=== PATIENT | female | born 1995 | race Caucasian/White ===

== ENCOUNTER 2016-03-11 21:41 | Emergency (ER) | payer MEDICAID, OTHER ==
[~2016-03-11] VITALS: Ht 157.5 cm; Wt 78.9 kg
[~2016-03-11 21:41] MED LIST: AMOX250S5 PO; HYDR118S PO
[2016-03-11 22:55] LABS: BILIRUBIN,URINE NEGATIVE (NEGATIVE); KETONES,URINE NEGATIVE (NEGATIVE); LEUKOCYTE ESTERASE ,URINE 2+ (NEGATIVE); NITRITE,URINE NEGATIVE (NEGATIVE); PH,URINE 6 (5-9); PROTEIN,URINE 1+ (NEGATIVE); UROBILINOGEN,URINE NORMAL (NORMAL)
[2016-03-12 01:23] LABS: BASOPHILS % (AUTO) 0 % (0-10); EOSINOPHILS % (AUTO) 1 % (0-10); LYMPHOCYTES # (AUTO) 2.3 X 10^3 (1.0-4.0); LYMPHOCYTES % (AUTO) 27 % (12-44); MEAN CORPUSCULAR HEMOGLOBIN 29 PG (25-34); MEAN CORPUSCULAR HGB CONC 36 G/DL (32-36); MEAN CORPUSCULAR VOLUME 81 FL (80-99); MONOCYTES # (AUTO) 0.8 X 10^3 (0.0-1.0); MONOCYTES % (AUTO) 9 % (0-12); NEUTROPHILS # (AUTO) 5.3 X 10^3 (1.8-7.8); NEUTROPHILS % (AUTO) 63 % (42-75); PLATELET COUNT 246 10^3/uL (130-400); RED BLOOD COUNT 5.24 10^6/uL (4.35-5.85); RED CELL DISTRIBUTION WIDTH 13.4 % (10.0-14.5); WHITE BLOOD COUNT 8.3 10^3/uL (4.3-11.0)
[2016-03-12 01:43] LABS: ALANINE AMINOTRANSFERASE 17 U/L (0-55); ALBUMIN 4.1 G/DL (3.2-4.5); ANION GAP 12 MMOL/L (5-14); ASPARTATE AMINO TRANSFERASE 15 U/L (5-34); BILIRUBIN,TOTAL 0.7 MG/DL (0.1-1.0); BLOOD UREA NITROGEN 7 MG/DL (7-18); BUN/CREATININE RATIO 9; CARBON DIOXIDE 19 MMOL/L (21-32); CHLORIDE 107 MMOL/L (98-107); CREATININE SERUM 0.77 MG/DL (0.60-1.30); GFR ESTIMATED > 60; GLUCOSE 84 MG/DL (70-105); LIPASE 14 U/L (8-78); POTASSIUM 3.1 MMOL/L (3.6-5.0); SODIUM 138 MMOL/L (135-145); TOTAL PROTEIN 7.2 G/DL (6.4-8.2)
[2016-03-12] MEDS ORDERED: CEPHALEXIN 250 MG (KEFLEX) CAP PO ONE (02:00)
[2016-03-12] MEDS ORDERED: KCL 10 MEQ TAB (MICRO K) PO ONE (02:00)
[2016-03-12] MEDS ORDERED: CEPH-507 PO (02:10)
--- NOTE | 2016-03-12 02:10 | ED Abdominal Pain ---
General Chief Complaint: Abdominal/GI Problems Stated Complaint: STOMACH PAIN Nursing Triage Note: abdominal pain Sepsis Screen: No Definite Risk Source of Information: Patient Exam Limitations: No Limitations History of Present Illness Time Seen By Provider: 22:37 Initial Comments This 20-year-old woman presents to the emergency room with complaints of abdominal pain from the upper abdomen extending to the lower abdomen. Pain started within the past 24 hours after eating pizza last night. She has nausea without vomiting. She has chronic diarrhea since cholecystectomy. She denies any vaginal or urinary symptoms. LMP was February 04 and her urine test is positive. Her. She was unaware of the . She reports history of hiatal hernia. Allergies and Home Medications Allergies Coded Allergies: No Known Drug Allergies (Unverified , 12/29/11) Home Medications Cephalexin 500 Mg Capsule 7Days 500 MG PO QID Prescribed by: FAISAL YING on 03/12/16 0210 Review of Systems Constitutional: no symptoms reported EENTM: No Symptoms Reported Respiratory: No Symptoms Reported Cardiovascular: No Symptoms Reported Gastrointestinal: See HPI Genitourinary: See HPI Musculoskeletal: no symptoms reported Skin: no symptoms reported Psychiatric/Neurological: No Symptoms Reported Past Ilzhvwp-Tcbove-Uvvkif Hx Patient Social History Alcohol Use: Denies Use Recreational Drug Use: No Smoking Status: Never a Smoker Recent Foreign Travel: No Contact w/Someone Who Travel: No Recent Infectious Disease Expo: No Recent Hopitalizations: No Physical Abuse Screen: No Sexual Abuse: No Immunizations Up To Date Tetanus Booster (TDap): Less than 5yrs Seasonal Allergies Seasonal Allergies: No Surgeries HX Surgeries: Yes (vaginal hernia; wisdom teeth) Surgeries: Gallbladder, Tonsillectomy Respiratory Hx Respiratory Disorders: No Cardiovascular Hx Cardiac Disorders: No Neurological Hx Neurological Disorders: Yes Neurological Disorders: Headaches /Migraines Reproductive System : Yes Hx Reproductive Disorders: No Genitourinary Hx Genitourinary Disorders: No Gastrointestinal Hx Gastrointestinal Disorders: Yes (chronic diarrhea) Gastrointestinal Disorders: Hiatal Hernia Musculoskeletal Hx Musculoskeletal Disorders: No Endocrine Hx Endocrine Disorders: No HEENT HX ENT Disorders: No Cancer Hx Cancer: No Psychosocial Hx Psychiatric Problems: No Blood Transfusions Hx Blood Disorders: No Physical Exam Vital Signs VS - Last 72 Hours, by Label 03/11/16 03/12/16 22:19 02:16 Temp 98.2 98.2 Pulse 100 112 Resp 20 20 B/P 111/75 Pulse Ox 97 98 O2 Delivery Room Air Capillary Refill : Less Than 3 Seconds General Appearance: WD/WN HEENT: PERRL/EOMI normal ENT inspection pharynx normal Neck: normal inspection Respiratory: lungs clear normal breath sounds no respiratory distress no accessory muscle use Cardiovascular: regular rate, rhythm no edema no murmur Gastrointestinal: normal bowel sounds soft tenderness (epigastric and suprapubic) Extremities: normal range of motion non-tender normal inspection Neurologic/Psychiatric: pc maintenance technician II-XII nml as tested no motor/sensory deficits alert normal mood/affect oriented x 3 Skin: normal color warm/dry Progress/Results/Core Measures Results/Orders Lab Results Laboratory Tests Test 03/11/16 22:45 03/12/16 01:12 Range/Units Urine Bacteria FEW H /HPF Urine Bilirubin NEGATIVE NEGATIVE Urine Casts NONE /LPF Urine Clarity CLEAR Urine Color YELLOW Urine Crystals NONE /LPF Urine Culture Indicated YES Urine Glucose (UA) NEGATIVE NEGATIVE Urine Ketones NEGATIVE NEGATIVE Urine Leukocyte Esterase 2+ H NEGATIVE Urine Mucus LARGE H /LPF Urine Nitrite NEGATIVE NEGATIVE Urine Protein 1+ H NEGATIVE Urine RBC NONE /HPF Urine RBC (Auto) NEGATIVE NEGATIVE Urine Specific [place] 1.020 1.016-1.022 Urine Squamous Epithelial Cells 10-25 H /HPF Urine Urobilinogen NORMAL NORMAL MG/DL Urine WBC 10-25 H /HPF Urine pH 6 5-9 Alanine Aminotransferase (ALT/SGPT) 17 0-55 U/L Albumin 4.1 3.2-4.5 G/DL Alkaline Phosphatase 98 40-136 U/L Anion Gap 12 5-14 MMOL/L Aspartate Amino Transf (AST/SGOT) 15 5-34 U/L BUN/Creatinine Ratio 9 Basophils # (Auto) 0.0 0.0-0.1 10^3/uL Basophils (%) (Auto) 0 0-10 % Blood Urea Nitrogen 7 7-18 MG/DL Calcium Level 9.0 8.5-10.1 MG/DL Carbon Dioxide Level 19 L 21-32 MMOL/L Chloride Level 107 98-107 MMOL/L Creatinine 0.77 0.60-1.30 MG/DL Eosinophils # (Auto) 0.0 0.0-0.3 10^3/uL Eosinophils (%) (Auto) 1 0-10 % Estimat Glomerular Filtration Rate > 60 Glucose Level 84 70-105 MG/DL Hematocrit 42 35-52 % Hemoglobin 15.1 11.5-16.0 G/DL Human Chorionic Gonadotropin, Quant 284 H <5 MIU/ML Lipase 14 8-78 U/L Lymphocytes # (Auto) 2.3 1.0-4.0 X 10^3 Lymphocytes (%) (Auto) 27 12-44 % Mean Corpuscular Hemoglobin 29 25-34 PG Mean Corpuscular Hemoglobin Concent 36 32-36 G/DL Mean Corpuscular Volume 81 80-99 FL Mean Platelet Volume 10.0 7.4-10.4 FL Monocytes # (Auto) 0.8 0.0-1.0 X 10^3 Monocytes (%) (Auto) 9 0-12 % Neutrophils # (Auto) 5.3 1.8-7.8 X 10^3 Neutrophils (%) (Auto) 63 42-75 % Platelet Count 246 130-400 10^3/uL Potassium Level 3.1 L 3.6-5.0 MMOL/L Red Blood Count 5.24 4.35-5.85 10^6/uL Red Cell Distribution Width 13.4 10.0-14.5 % Sodium Level 138 135-145 MMOL/L Total Bilirubin 0.7 0.1-1.0 MG/DL Total Protein 7.2 6.4-8.2 G/DL White Blood Count 8.3 4.3-11.0 10^3/uL My Orders Orders-FAISAL WHITTEN MD Ua Culture If Indicated (03/11/16 22:37) Urine Bedside (03/11/16 22:37) Urine Culture (03/11/16 22:45) Cbc With Automated Diff (03/11/16 23:50) Comprehensive Metabolic Panel (03/11/16 23:50) Hcg,Quantitative (03/11/16 23:50) Lipase (03/11/16 23:50) Us Ob Transvaginal 61023 (03/11/16 23:50) Potassium Chloride (Tablet) (Klor Con Ta (03/12/16 02:00) Cephalexin Capsule (Keflex Capsule) (03/12/16 02:00) Medications Given in ED Current Medications Medications Dose Ordered Sig/Allyssa Route Start Time Stop Time Status Last Admin Dose Admin Cephalexin HCl 500 mg ONCE ONCE PO 03/12/16 02:00 03/12/16 02:02 DC 03/12/16 01:59 500 MG Potassium Chloride 40 meq ONCE ONCE PO 03/12/16 02:00 03/12/16 02:02 DC 03/12/16 01:59 40 MEQ Vital Signs/I&O Vital Sign - Last 12Hours 03/11/16 03/12/16 22:19 02:16 Temp 98.2 98.2 Pulse 100 112 Resp 20 20 B/P 111/75 Pulse Ox 97 98 O2 Delivery Room Air Blood Pressure Mean: 87 Point of Care Testing Urine -Bedside: Positive Progress Note : Progress Note Patient was given Keflex for treatment of her urinary tract infection. Potassium was replaced. Epigastric pain improved during the ER visit. I suggested her pain may be related to hiatal hernia and an antacid therapy may be appropriate. Diagnostic Imaging Diagonstic Imaging: Ultrasound Plain Films/CT/US/NM/MRI: pelvis Comments Pelvic ultrasound was discussed with the mobile home technician and statrad report reviewed. No intrauterine was identified at this time. Endometrial stripe was thickened at 1.3 cm. Small to moderate amount of fluid is seen adjacent to the fundus of the uterus with a low level echoes, debris, or hemorrhage. Ovaries are normal. No evidence of adnexal mass or ectopic . Departure Impression Impression: Primary Impression: Qualified Code: Z33.1 - state, incidental Additional Impressions: Abdominal pain Qualified Code: R10.13 - Epigastric pain Hypokalemia Urinary tract infection Qualified Code: N39.0 - Urinary tract infection, site not specified Disposition: 01 HOME, SELF-CARE Condition: Improved Departure-Patient Inst. Decision time for Depature: 01:30 Referrals: SELFCHAKA MD (PCP) Primary Care Physician Patient Instructions: Acute Abdomen (Belly Pain), Adult (DC) Add. Discharge Instructions: Follow-up with an obstetrical provider as soon as possible. No definite was seen on your ultrasound but your hormone levels are elevated. Follow-up hormone levels and ultrasound should be considered by your obstetrical provider. Return to emergency room if symptoms worsen. Complete your antibiotics as prescribed. Follow-up with your doctor in about 48 hours to review urine cultures. This will ensure you're on the right antibiotic for your infection. Your potassium was low. Eat a diet high in potassium including foods such as citrus fruits and juices, bananas, watermelon, yogurt, etc. All discharge instructions reviewed with patient and/or family. Voiced understanding. Scripts Cephalexin (Keflex)500 Mg [id number] Mg PO QID 7 Days Prov:FAISAL WHITTEN MD 03/12/16 FAISAL WHITTEN MD Mar 12, 2016 02:10
[2016-03-12 02:16] VITALS: BP 132/81
--- NOTE | 2016-03-12 08:05 | Diagnostic Imaging Report ---
INDICATION: Pain with positive . FINDINGS: There is no adnexal lesion and no intra-or extrauterine gestation is identified. The endometrial thickness is 1.3 cm but appeared homogenous. There is a small amount of free fluid with internal echoes adjacent to the fundus of the retroflexed uterus. No myometrial mass. No adnexal torsion. IMPRESSION: Homogenously thickened endometrium with no identifiable intra-or extrauterine gestation followup recommended. Small volume pelvic free fluid adjacent to the fundus of a retroflexed uterus. Agree with preliminary. Dictated by: Dictated on workstation # [id number]
== END 2016-03-12 02:15 | disposition home or self-care (01) ==
LOC: EDUNIT# 21:41 → ER 21:43
DX: R10.13 Epigastric pain (principal); E87.6 Hypokalemia; N39.0 Urinary tract infection, site not specified; K44.9 Diaphragmatic hernia without obstruction or gangrene; Z33.1 Pregnant state, incidental; Z3A.01 Less than 8 weeks gestation of pregnancy
CPT/HCPCS: 36415; 76817; 80053; 81000; 83690; 84702; 84703; 85025; 87088

== ENCOUNTER 2018-04-23 21:03 | Emergency (ER) | payer MEDICAID ==
[~2018-04-23] VITALS: Ht 158.8 cm; Wt 77.6 kg
[~2018-04-23 21:03] MED LIST changes: +CEPH-507 PO
--- NOTE | 2018-04-23 21:36 | ED Back Pain ---
General Chief Complaint: Back Problems Stated Complaint: LT SIDE HIP, LOW BACK AND ABD PAIN; MIGRAINE Nursing Sepsis Screen: No Definite Risk History of Present Illness Date Seen by Provider: Apr 23, 2018 Time Seen by Provider: 21:21 Initial Comments 23-year-old female presents with left flank pain 4 days. Reports that his got worse over the last 4 days. That she has some nausea over the pain that radiates into her abdomen. She denies any urinary symptoms. She reports when she was she had a history of kidney stones. She denies any fevers, chills. She reports no nausea or diarrhea. She reports that she was just "lying down" when the pain started. She is unsure if she is . Allergies and Home Medications Allergies Coded Allergies: No Known Drug Allergies (Unverified , 12/29/11) Home Medications Cephalexin 500 Mg Capsule, 500 MG PO QID Prescribed by: FAISAL YING on 03/12/16 0210 Patient Home Medication List Home Medication List Reviewed: Yes Review of Systems Constitutional: No chills, No dizziness, No fever EENTM: no symptoms reported Respiratory: No cough, No dyspnea on exertion, No short of breath Gastrointestinal: LUQ, LLQ; No constipation, No diarrhea; nausea; No vomiting Genitourinary: see HPI : No Musculoskeletal: see HPI, back pain Skin: no symptoms reported Past Fkbeals-Jxrckd-Epfloj Hx Past Med/Social Hx: Reviewed Nursing Past Med/Soc Hx Patient Social History Recent Foreign Travel: No Contact w/Someone Who Travel: No Recent Infectious Disease Expo: No Recent Hopitalizations: No Physical Abuse: No Sexual Abuse: No Mistreated: No Fear: No Immunizations Up To Date Tetanus Booster (TDap): Less than 5yrs Seasonal Allergies Seasonal Allergies: No Past Medical History Gallbladder, Tonsillectomy Headaches /Migraines Reproductive Disorders: No Hiatal Hernia Physical Exam Vital Signs Vital Signs - First Documented 04/23/18 21:25 Temp 100.2 Pulse 127 Resp 16 B/P (MAP) 123/72 (89) Pulse Ox 98 Capillary Refill : Greater Than 3 Seconds Height, Weight, BMI Height: 5'2.50" Weight: 171lbs. oz. 77.599432st; BMI Method:Actual General Appearance: No Apparent Distress, WD/WN HEENT: PERRL/EOMI, Normal ENT Inspection Neck: Full Range of Motion Cardiovascular: Regular Rate, Rhythm, No Edema Respiratory: Chest Non Tender, Lungs Clear, Normal Breath Sounds Gastrointestinal: Non Tender, Soft; No Distended, No Guarding Back: CVA Tenderness (L) (Mild bilateral), CVA Tenderness (R) Extremity: Normal Capillary Refill Neurologic/Psychiatric: Alert, Oriented x3, No Motor/Sensory Deficits Skin: Normal Color, Warm/Dry Progress/Results/Core Measures Results/Orders Lab Results Laboratory Tests Test 04/23/18 21:41 Range/Units White Blood Count 12.9 H 4.3-11.0 10^3/uL Red Blood Count 5.46 4.35-5.85 10^6/uL Hemoglobin 16.1 H 11.5-16.0 G/DL Hematocrit 47 35-52 % Mean Corpuscular Volume 86 80-99 FL Mean Corpuscular Hemoglobin 29 25-34 PG Mean Corpuscular Hemoglobin Concent 35 32-36 G/DL Red Cell Distribution Width 11.9 10.0-14.5 % Platelet Count 219 130-400 10^3/uL Mean Platelet Volume 9.2 7.4-10.4 FL Neutrophils (%) (Auto) 76 H 42-75 % Lymphocytes (%) (Auto) 13 12-44 % Monocytes (%) (Auto) 11 0-12 % Eosinophils (%) (Auto) 0 0-10 % Basophils (%) (Auto) 0 0-10 % Neutrophils # (Auto) 9.8 H 1.8-7.8 X 10^3 Lymphocytes # (Auto) 1.6 1.0-4.0 X 10^3 Monocytes # (Auto) 1.4 H 0.0-1.0 X 10^3 Eosinophils # (Auto) 0.0 0.0-0.3 10^3/uL Basophils # (Auto) 0.0 0.0-0.1 10^3/uL Urine Color YELLOW Urine Clarity CLOUDY Urine pH 6.0 5-9 Urine Specific [place] 1.020 1.016-1.022 Urine Protein 1+ H NEGATIVE Urine Glucose (UA) NEGATIVE NEGATIVE Urine Ketones NEGATIVE NEGATIVE Urine Nitrite POSITIVE H NEGATIVE Urine Bilirubin NEGATIVE NEGATIVE Urine Urobilinogen 0.2 NORMAL MG/DL Urine Leukocyte Esterase 3+ H NEGATIVE Urine RBC (Auto) 1+ H NEGATIVE Urine RBC 2+5 /HPF Urine WBC TNTC H /HPF Urine Squamous Epithelial Cells 5-10 /HPF Urine Crystals NONE /LPF Urine Bacteria MODERATE H /HPF Urine Casts NONE /LPF Urine Mucus NEGATIVE /LPF Urine Culture Indicated YES Urine Test NEGATIVE NEGATIVE Sodium Level 135 135-145 MMOL/L Potassium Level 3.5 L 3.6-5.0 MMOL/L Chloride Level 100 98-107 MMOL/L Carbon Dioxide Level 15 L 21-32 MMOL/L Anion Gap 20 H 5-14 MMOL/L Blood Urea Nitrogen 6 L 7-18 MG/DL Creatinine 0.65 0.60-1.30 MG/DL Estimat Glomerular Filtration Rate > 60 BUN/Creatinine Ratio 9 Glucose Level 103 70-105 MG/DL Calcium Level 9.2 8.5-10.1 MG/DL Corrected Calcium 9.0 8.5-10.1 MG/DL Total Bilirubin 0.6 0.1-1.0 MG/DL Aspartate Amino Transf (AST/SGOT) 13 5-34 U/L Alanine Aminotransferase (ALT/SGPT) 10 0-55 U/L Alkaline Phosphatase 113 40-136 U/L Total Protein 7.7 6.4-8.2 GM/DL Albumin 4.2 3.2-4.5 GM/DL Serum Test, Qualitative NEGATIVE NEGATIVE My Orders Orders - RAYMOND,SEBLE L DO Cbc With Automated Diff (04/23/18 21:46) Comprehensive Metabolic Panel (04/23/18 21:46) Hcg,Qualitative Urine (04/23/18 21:46) Ua Culture If Indicated (04/23/18 21:46) Abdomen 1 View Decub (04/23/18 21:46) Ketorolac Injection (Toradol Injection) (04/23/18 22:00) Urine Culture (04/23/18 21:41) Ceftriaxone For Im Use (Rocephin For Im (04/23/18 22:15) Lidocaine 1% Inj 20 Ml (Xylocaine 1% Inj (04/23/18 22:15) Hcg,Qualitative Serum (04/23/18 22:15) Medications Given in ED Current Medications Medications Dose Ordered Sig/Allyssa Route Start Time Stop Time Status Last Admin Dose Admin Ceftriaxone Sodium 1,000 mg ONCE ONCE IM 04/23/18 22:15 04/23/18 22:16 DC 04/23/18 22:25 1,000 MG Ketorolac Tromethamine 30 mg ONCE ONCE IM 04/23/18 22:00 04/23/18 22:01 DC 04/23/18 22:24 30 MG Lidocaine HCl 2.1 ml ONCE ONCE INJ 04/23/18 22:15 04/23/18 22:16 DC 04/23/18 22:23 2.1 ML Vital Signs/I&O 04/23/18 21:25 Temp 100.2 Pulse 127 Resp 16 B/P (MAP) 123/72 (89) Pulse Ox 98 Blood Pressure Mean: 89 Departure Impression Primary Impression: Pyelonephritis Disposition: HOME, SELF-CARE Condition: Stable Departure-Patient Inst. Referrals: NO,LOCAL PHYSICIAN (PCP/Family) Primary Care Physician Patient Instructions: Urinary Tract Infection, Adult (DC) Scripts Cephalexin (Keflex) 500 Mg Capsule 500 MG PO TID for 10 Days, #30 CAP Prov: SEBLE RAYMOND DO 04/23/18 SEBLE RAYMOND DO Apr 23, 2018 21:36
[2018-04-23] MEDS ORDERED: KETOROLAC 60 MG/2 ML VIAL IM ONE (22:00)
[2018-04-23 22:01] LABS: CLARITY,URINE CLOUDY; COLOR,URINE YELLOW; GLUCOSE, URINE (UA) NEGATIVE (NEGATIVE); PROTEIN,URINE 1+ (NEGATIVE)
[2018-04-23 22:02] LABS: BACTERIA,URINE MODERATE /HPF; BILIRUBIN,URINE NEGATIVE (NEGATIVE); KETONES,URINE NEGATIVE (NEGATIVE); LEUKOCYTE ESTERASE ,URINE 3+ (NEGATIVE); NITRITE,URINE POSITIVE (NEGATIVE); RBC,URINE 2+5 /HPF; UROBILINOGEN,URINE 0.2 MG/DL (NORMAL); WBC,URINE TNTC /HPF
[2018-04-23 22:11] LABS: BASOPHILS % (AUTO) 0 % (0-10); EOSINOPHILS % (AUTO) 0 % (0-10); HEMATOCRIT 47 % (35-52); HEMOGLOBIN 16.1 G/DL (11.5-16.0); LYMPHOCYTES # (AUTO) 1.6 X 10^3 (1.0-4.0); LYMPHOCYTES % (AUTO) 13 % (12-44); MEAN CORPUSCULAR HEMOGLOBIN 29 PG (25-34); MEAN CORPUSCULAR HGB CONC 35 G/DL (32-36); MEAN CORPUSCULAR VOLUME 86 FL (80-99); MEAN PLATELET VOLUME 9.2 FL (7.4-10.4); MONOCYTES # (AUTO) 1.4 X 10^3 (0.0-1.0); MONOCYTES % (AUTO) 11 % (0-12); NEUTROPHILS # (AUTO) 9.8 X 10^3 (1.8-7.8); NEUTROPHILS % (AUTO) 76 % (42-75); PLATELET COUNT 219 10^3/uL (130-400); RED CELL DISTRIBUTION WIDTH 11.9 % (10.0-14.5); WHITE BLOOD COUNT 12.9 10^3/uL (4.3-11.0)
[2018-04-23] MEDS ORDERED: LIDOCAINE 1% INJ 20 ML 20 ML VIAL INJ ONE (22:15)
[2018-04-23] MEDS ORDERED: cefTRIAXone 1,000 MG/2.86 ml vial (IM ONLY) IM ONE (22:15)
[2018-04-23 22:26] LABS: ALANINE AMINOTRANSFERASE 10 U/L (0-55); ALBUMIN 4.2 GM/DL (3.2-4.5); ALKALINE PHOSPHATASE 113 U/L (40-136); BILIRUBIN,TOTAL 0.6 MG/DL (0.1-1.0); BUN/CREATININE RATIO 9; CALCIUM 9.2 MG/DL (8.5-10.1); CARBON DIOXIDE 15 MMOL/L (21-32); CHLORIDE 100 MMOL/L (98-107); CREATININE SERUM 0.65 MG/DL (0.60-1.30); GFR ESTIMATED > 60; GLUCOSE 103 MG/DL (70-105); POTASSIUM 3.5 MMOL/L (3.6-5.0); SODIUM 135 MMOL/L (135-145); TOTAL PROTEIN 7.7 GM/DL (6.4-8.2)
[2018-04-23] MEDS ORDERED: CEPH-507 PO (22:56)
[2018-04-23 23:02] VITALS: BP 127/80
--- NOTE | 2018-04-24 08:14 | Diagnostic Imaging Report ---
INDICATION: Patient complains of abdominal pain. COMPARISON: None available. FINDINGS: No free intraperitoneal air. Nonobstructive bowel gas pattern. A small volume of colonic stool is present in the left hemicolon. Cholecystectomy. Normal regional skeleton. IMPRESSION: 1. Nonobstructive bowel gas pattern. 2. Small volume of colonic stool. Dictated by: Dictated on workstation # [id number]
== END 2018-04-23 23:00 | disposition home or self-care (01) ==
LOC: EDUNIT# 21:03 → ER FS 21:05
DX: N12 Tubulo-interstitial nephritis, not specified as acute or chronic (principal); G43.909 Migraine, unspecified, not intractable, without status migrainosus; Z87.19 Personal history of other diseases of the digestive system; Z87.442 Personal history of urinary calculi; Z90.89 Acquired absence of other organs
CPT/HCPCS: 36415; 74018; 80053; 81000; 84703; 85025; 87077; 87088

== ENCOUNTER 2018-10-09 17:16 | Emergency (ER) | payer MEDICAID ==
[~2018-10-09] VITALS: Ht 157.5 cm; Wt 78.9 kg
--- NOTE | 2018-10-09 18:55 | ED General ---
General Chief Complaint: Cough/Cold/Flu Symptoms Stated Complaint: EAR ACHE AND BLOOD TEST Nursing Triage Note: AMB TO ROOM C/O THROAT AND EARS BEING ITCHY FOR 1 WEEK ALSO WANTS A BLOOD PREG TEST. Nursing Sepsis Screen: No Definite Risk History of Present Illness Date Seen by Provider: Oct 09, 2018 Time Seen by Provider: 18:15 Initial Comments 23-year-old female presents for pruritus to ears and throat for approximately one week. She has tried Benadryl occasionally with no improvement of her symptoms. Also requesting a serum hCG, her last menstrual cycle was August 13. Her last 2 pregnancies had several negative urine tests, but positive serum. Timing/Duration: 1 Week Severity: Mild Associated Systoms: Denies Symptoms; No Cough, No Fever/Chills, No Headaches, No Loss of Appetite, No Nausea/Vomiting, No Seizure, No Syncope, No Weakness Allergies and Home Medications Allergies Coded Allergies: No Known Drug Allergies (Unverified , 12/29/11) Home Medications Cephalexin 500 Mg Capsule, 500 MG PO TID Prescribed by: SEBLE RAYMOND on 04/23/18 1518 Patient Home Medication List Home Medication List Reviewed: Yes Review of Systems Review of Systems Constitutional: no symptoms reported, see HPI EENTM: see HPI, nose congestion, other (itching in throat and ears. ) Respiratory: no symptoms reported, see HPI Cardiovascular: no symptoms reported, see HPI All Other Systems Reviewed Negative Unless Noted: Yes Past Yzfacly-Kfmyfr-Ffykgm Hx Past Med/Social Hx: Reviewed Nursing Past Med/Soc Hx Patient Social History Alcohol Use: Denies Use Recreational Drug Use: No Smoking Status: Never a Smoker Recent Foreign Travel: No Contact w/Someone Who Travel: No Recent Infectious Disease Expo: No Recent Hopitalizations: No Immunizations Up To Date Tetanus Booster (TDap): Less than 5yrs Seasonal Allergies Seasonal Allergies: No Past Medical History Surgeries: Yes (vaginal hernia; wisdom teeth) Section, Gallbladder, Tonsillectomy Respiratory: No Cardiac: No Neurological: Yes Headaches /Migraines Last Menstrual Period: Aug 13, 2018 Reproductive Disorders: No Gastrointestinal: Yes (chronic diarrhea) Hiatal Hernia Musculoskeletal: No Endocrine: No Cancer: No Psychosocial: No Blood Disorders: No Physical Exam Vital Signs Vital Signs - First Documented 10/09/18 17:21 Temp 98.8 Pulse 100 Resp 18 B/P (MAP) 129/78 (95) Pulse Ox 98 O2 Delivery Room Air Capillary Refill : Less Than 3 Seconds Height, Weight, BMI Height: 5'2.00" Weight: 174lbs. oz. 78.806535kk; BMI Method:Stated General Appearance: No Apparent Distress, WD/WN Eyes: Bilateral Eye Normal Inspection, Bilateral Eye PERRL, Bilateral Eye EOMI HEENT: PERRL/EOMI, TMs Normal, Pharynx Normal, Other (postnasal drainage to the pharynx) Neck: Full Range of Motion, Normal Inspection, Non Tender, Supple; No Lymphadenopathy (L), No Lymphadenopathy (R) Respiratory: Chest Non Tender, Lungs Clear, Normal Breath Sounds Cardiovascular: Regular Rate, Rhythm, No Murmur, Normal Peripheral Pulses Gastrointestinal: Normal Bowel Sounds, Non Tender, Soft Neurologic/Psychiatric: Alert, Oriented x3, No Motor/Sensory Deficits, Normal Mood/Affect Skin: Normal Color, Warm/Dry; No Rash Progress/Results/Core Measures Suspected Sepsis Recent Fever Within 48 Hours: No Infection Criteria Present: None New/Unexplained Altered Menta: No Sepsis Screen: No Definite Risk SIRS Temperature:98.8 Pulse: 100 Respiratory Rate: 18 Blood Pressure 129 /78 Mean: 95 Results/Orders Lab Results Laboratory Tests Test 10/09/18 18:40 Range/Units Serum Test, Qualitative NEGATIVE NEGATIVE My Orders Orders - KAY MILLER Hcg,Qualitative Serum (10/09/18 18:33) Vital Signs/I&O 10/09/18 10/09/18 17:21 19:22 Temp 98.8 Pulse 100 72 Resp 18 16 B/P (MAP) 129/78 (95) 132/71 (91) Pulse Ox 98 99 O2 Delivery Room Air Capillary Refill : Less Than 3 Seconds Blood Pressure Mean: 95 Departure Impression Primary Impression: Allergic rhinitis Qualified Codes: J30.1 - Allergic rhinitis due to pollen Disposition: 01 HOME, SELF-CARE Condition: Improved Departure-Patient Inst. Decision time for Depature: 19:00 Referrals: SELFCHAKA MD (PCP/Family) Primary Care Physician Patient Instructions: Seasonal Allergies (DC) Add. Discharge Instructions: Continue to take Benadryl 25 mg up to every 8 hours. Take Zyrtec [id number] one tablet daily. Follow-up with primary care provider if symptoms are not improving or worsen. Take vitamin daily if not using control and sexual active. Return to emergency department for new, urgent health problems. All discharge instructions reviewed with patient and/or family. Voiced understanding. KAY MILLER Oct 09, 2018 18:55
[2018-10-09 19:22] VITALS: BP 132/71
== END 2018-10-09 19:23 | disposition home or self-care (01) ==
LOC: EDUNIT# 17:16 → ER 17:18
DX: J30.9 Allergic rhinitis, unspecified (principal); G43.909 Migraine, unspecified, not intractable, without status migrainosus; Z90.89 Acquired absence of other organs; Z32.02 Encounter for pregnancy test, result negative
CPT/HCPCS: 36415; 84703; 99282

== ENCOUNTER 2018-10-19 13:10 | Emergency (ER) | payer MEDICAID ==
[~2018-10-19] VITALS: Ht 157.5 cm; Wt 78.9 kg
--- NOTE | 2018-10-19 13:30 | ED Abdominal Pain ---
General Chief Complaint: Abdominal/GI Problems Stated Complaint: ABD PAIN Nursing Triage Note: c/o diffuse abdomen pain with diarrhea x 2 weeks. Sepsis Screen: No Definite Risk Source of Information: Patient Exam Limitations: No Limitations History of Present Illness Date Seen by Provider: Oct 19, 2018 Time Seen by Provider: 13:29 Initial Comments Abdominal pain nausea diarrhea for 2 weeks. Thinks she might be because she had these similar symptoms with her last . Has not taken a test at home because "urine tests don't work on me" Timing/Duration: 1-2 Days Severity/Quality: Moderate Location: Generalized Abdomen Radiation: No Radiation Activities at Onset: None Allergies and Home Medications Allergies Coded Allergies: No Known Drug Allergies (Unverified , 12/29/11) Home Medications Cephalexin 500 Mg Capsule, 500 MG PO TID Prescribed by: SEBLE RAYMOND on 04/23/18 2964 Patient Home Medication List Home Medication List Reviewed: Yes Review of Systems Review of Systems Constitutional: see HPI EENTM: No Symptoms Reported Respiratory: No Symptoms Reported Cardiovascular: No Symptoms Reported Gastrointestinal: See HPI, Abdominal Pain, Diarrhea Genitourinary: No Symptoms Reported Musculoskeletal: no symptoms reported Skin: no symptoms reported Psychiatric/Neurological: No Symptoms Reported Endocrine: No Symptoms Reported Past [id number] Hx Patient Social History Alcohol Use: Denies Use Recreational Drug Use: No Recent Foreign Travel: No Contact w/Someone Who Travel: No Recent Infectious Disease Expo: No Recent Hopitalizations: No Immunizations Up To Date Tetanus Booster (TDap): Less than 5yrs Seasonal Allergies Seasonal Allergies: No Past Medical History Surgeries: Yes (vaginal hernia; wisdom teeth) Section, Gallbladder, Tonsillectomy Respiratory: No Cardiac: No Neurological: Yes Headaches /Migraines Reproductive Disorders: No Gastrointestinal: Yes (chronic diarrhea) Hiatal Hernia Musculoskeletal: No Endocrine: No Cancer: No Psychosocial: No Integumentary: No Blood Disorders: No Physical Exam Vital Signs Vital Signs - First Documented 10/19/18 13:20 Temp 98.0 Pulse 97 Resp 16 B/P (MAP) 137/79 (98) Pulse Ox 98 Capillary Refill : Less Than 3 Seconds Height/Weight/BMI Height: 5'2.00" Weight: 174lbs. oz. 78.745901mg; BMI Method:Stated General Appearance: WD/WN, no apparent distress Respiratory: no respiratory distress, no accessory muscle use Gastrointestinal: normal bowel sounds, soft, tenderness Extremities: normal range of motion, non-tender Neurologic/Psychiatric: alert, normal mood/affect, oriented x 3 Skin: normal color, warm/dry Progress/Results/Core Measures Results/Orders Lab Results Laboratory Tests Test 10/19/18 13:35 Range/Units White Blood Count 6.7 4.3-11.0 10^3/uL Red Blood Count 4.53 4.35-5.85 10^6/uL Hemoglobin 13.4 11.5-16.0 G/DL Hematocrit 39 35-52 % Mean Corpuscular Volume 87 80-99 FL Mean Corpuscular Hemoglobin 30 25-34 PG Mean Corpuscular Hemoglobin Concent 34 32-36 G/DL Red Cell Distribution Width 12.4 10.0-14.5 % Platelet Count 190 130-400 10^3/uL Mean Platelet Volume 9.7 7.4-10.4 FL Neutrophils (%) (Auto) 68 42-75 % Lymphocytes (%) (Auto) 19 12-44 % Monocytes (%) (Auto) 9 0-12 % Eosinophils (%) (Auto) 4 0-10 % Basophils (%) (Auto) 0 0-10 % Neutrophils # (Auto) 4.6 1.8-7.8 X 10^3 Lymphocytes # (Auto) 1.3 1.0-4.0 X 10^3 Monocytes # (Auto) 0.6 0.0-1.0 X 10^3 Eosinophils # (Auto) 0.2 0.0-0.3 10^3/uL Basophils # (Auto) 0.0 0.0-0.1 10^3/uL Urine Color YELLOW Urine Clarity SLIGHTLY CLOUDY Urine pH 5 5-9 Urine Specific [place] 1.025 H 1.016-1.022 Urine Protein NEGATIVE NEGATIVE Urine Glucose (UA) NEGATIVE NEGATIVE Urine Ketones NEGATIVE NEGATIVE Urine Nitrite NEGATIVE NEGATIVE Urine Bilirubin NEGATIVE NEGATIVE Urine Urobilinogen NORMAL NORMAL MG/DL Urine Leukocyte Esterase 1+ H NEGATIVE Urine RBC (Auto) 1+ H NEGATIVE Urine RBC 0-2 /HPF Urine WBC RARE /HPF Urine Squamous Epithelial Cells 2-5 /HPF Urine Crystals NONE /LPF Urine Bacteria FEW H /HPF Urine Casts NONE /LPF Urine Mucus SMALL H /LPF Urine Culture Indicated NO Sodium Level 140 135-145 MMOL/L Potassium Level 3.8 3.6-5.0 MMOL/L Chloride Level 107 98-107 MMOL/L Carbon Dioxide Level 24 21-32 MMOL/L Anion Gap 9 5-14 MMOL/L Blood Urea Nitrogen 9 7-18 MG/DL Creatinine 0.76 0.60-1.30 MG/DL Estimat Glomerular Filtration Rate > 60 BUN/Creatinine Ratio 12 Glucose Level 154 H 70-105 MG/DL Calcium Level 8.3 L 8.5-10.1 MG/DL Corrected Calcium 8.6 8.5-10.1 MG/DL Total Bilirubin 0.2 0.1-1.0 MG/DL Aspartate Amino Transf (AST/SGOT) 17 5-34 U/L Alanine Aminotransferase (ALT/SGPT) 21 0-55 U/L Alkaline Phosphatase 58 40-136 U/L Total Protein 6.2 L 6.4-8.2 GM/DL Albumin 3.6 3.2-4.5 GM/DL Lipase 20 8-78 U/L Serum Test, Qualitative NEGATIVE NEGATIVE My Orders Orders - GREGORY KNIGHT APRN Cbc With Automated Diff (10/19/18 13:20) Comprehensive Metabolic Panel (10/19/18 13:20) Lipase (10/19/18 13:20) Ua Culture If Indicated (10/19/18 13:20) Hcg,Qualitative Serum (10/19/18 13:20) Vital Signs/I&O 10/19/18 13:20 Temp 98.0 Pulse 97 Resp 16 B/P (MAP) 137/79 (98) Pulse Ox 98 Blood Pressure Mean: 98 Departure Impression Primary Impression: Abdominal pain Qualified Codes: R10.84 - Generalized abdominal pain Disposition: 01 HOME, SELF-CARE Condition: Stable Departure-Patient Inst. Decision time for Depature: 14:18 Referrals: SELF,CHAKA NELSON (PCP/Family) Primary Care Physician Patient Instructions: No Instuctions Given Scripts Hyoscyamine Sulfate (Levsin-Sl) 0.125 Mg Tab.subl 0.125 MG SL Q4H PRN for ABDOMINAL PAIN, #10 TAB 0 Refills Prov: GREGORY KNIGHT APRN 10/19/18 GREGORY KNIGHT APRN Oct 19, 2018 13:30
[2018-10-19 13:54] LABS: BILIRUBIN,URINE NEGATIVE (NEGATIVE); CLARITY,URINE SLIGHTLY CLOUDY; COLOR,URINE YELLOW; GLUCOSE, URINE (UA) NEGATIVE (NEGATIVE); KETONES,URINE NEGATIVE (NEGATIVE); LEUKOCYTE ESTERASE ,URINE 1+ (NEGATIVE); NITRITE,URINE NEGATIVE (NEGATIVE); PH,URINE 5 (5-9); PROTEIN,URINE NEGATIVE (NEGATIVE); UROBILINOGEN,URINE NORMAL (NORMAL)
[2018-10-19 14:03] LABS: BASOPHILS % (AUTO) 0 % (0-10); EOSINOPHILS # (AUTO) 0.2 10^3/uL (0.0-0.3); EOSINOPHILS % (AUTO) 4 % (0-10); HEMATOCRIT 39 % (35-52); HEMOGLOBIN 13.4 G/DL (11.5-16.0); LYMPHOCYTES # (AUTO) 1.3 X 10^3 (1.0-4.0); LYMPHOCYTES % (AUTO) 19 % (12-44); MEAN CORPUSCULAR HEMOGLOBIN 30 PG (25-34); MEAN CORPUSCULAR HGB CONC 34 G/DL (32-36); MEAN CORPUSCULAR VOLUME 87 FL (80-99); MEAN PLATELET VOLUME 9.7 FL (7.4-10.4); MONOCYTES # (AUTO) 0.6 X 10^3 (0.0-1.0); MONOCYTES % (AUTO) 9 % (0-12); NEUTROPHILS # (AUTO) 4.6 X 10^3 (1.8-7.8); NEUTROPHILS % (AUTO) 68 % (42-75); PLATELET COUNT 190 10^3/uL (130-400); RED CELL DISTRIBUTION WIDTH 12.4 % (10.0-14.5); WHITE BLOOD COUNT 6.7 10^3/uL (4.3-11.0)
[2018-10-19 14:04] LABS: BACTERIA,URINE FEW /HPF; RBC,URINE 0-2 /HPF; WBC,URINE RARE /HPF
[2018-10-19 14:34] LABS: ALANINE AMINOTRANSFERASE 21 U/L (0-55); ALBUMIN 3.6 GM/DL (3.2-4.5); ALKALINE PHOSPHATASE 58 U/L (40-136); BILIRUBIN,TOTAL 0.2 MG/DL (0.1-1.0); BUN/CREATININE RATIO 12; CALCIUM 8.3 MG/DL (8.5-10.1); CARBON DIOXIDE 24 MMOL/L (21-32); CHLORIDE 107 MMOL/L (98-107); CREATININE SERUM 0.76 MG/DL (0.60-1.30); GFR ESTIMATED > 60; GLUCOSE 154 MG/DL (70-105); LIPASE 20 U/L (8-78); POTASSIUM 3.8 MMOL/L (3.6-5.0); SODIUM 140 MMOL/L (135-145); TOTAL PROTEIN 6.2 GM/DL (6.4-8.2)
[2018-10-19] MEDS ORDERED: HYOS0.1283 SL (14:41)
[2018-10-19 14:42] VITALS: BP 137/79
== END 2018-10-19 14:42 | disposition home or self-care (01) ==
LOC: EDUNIT# 13:10 → ER 13:11
DX: R10.84 Generalized abdominal pain (principal); G43.909 Migraine, unspecified, not intractable, without status migrainosus; Z87.19 Personal history of other diseases of the digestive system; Z90.89 Acquired absence of other organs
CPT/HCPCS: 36415; 80053; 81000; 83690; 84703; 85025